=== PATIENT | male | born 1990 | race Hispanic/Latino ===

== ENCOUNTER 2020-05-23 15:47 | Emergency (ER) | payer SELFPAY ==
--- NOTE | ~2020-05-23 | XR_ITS ---
EXAMINATION: XR ankle LT min 3V EXAM DATE: 05/23/2020 16:16 INDICATION: Initial encounter following injury, with pain of the left ankle. TECHNIQUE: Left ankle frontal, lateral and oblique projections obtained and reviewed. There is no pr ior study for comparison. FINDINGS: The left ankle mortise appears intact. There are no acute fractures or dislocations ident ified. There is no subcutaneous gas. The soft tissue is unremarkable. There are no radiopaque for eign bodies. IMPRESSION: 1. XR ankle LT min 3V exam without acute osseous findings. Reviewed, dictated and finalized at location A. WAY ENGINEER
[2020-05-23 16:06] VITALS: BP 148/89; PULSE 124; RESP 18; TEMP 37.3; O2SAT 99
--- NOTE | 2020-05-23 16:30 | ED.LOWEXIN ---
HPI - Extremity Injury (Lower) General Chief Complaint: Extremity Injury, Lower Stated Complaint: Left ankle pain Time Seen by Provider: 05/23/20 16:24 Source: patient and RN notes reviewed Mode of arrival: ambulatory Limitations: no limitations History of Present Illness HPI Narrative: Patient presents today complaining of left ankle pain x2 days after twisting it while walking up some stairs. He has been ambulatory slowly. Currently rates pain 8/10, which increases with weightbearing. Denies numbness or tingling in the leg or foot. He has been taking ibuprofen and applying ice and heat with short-term relief. He has also been wearing a compression wrap. complaint: ankle injury Related Data Home Medications Medication Instructions Recorded Confirmed albuterol sulfate 2 inh INHALATION DIRECTED PRN 05/23/20 05/23/20 Allergies Allergy/AdvReac Type Severity Reaction Status Date / Time No Known Allergies Allergy Unverified 05/23/20 16:05 Review of Systems Review of Systems: Narrative: CONSTITUTIONAL: Denies body aches, fever, chills, or sweats. EYES: Denies visual changes, redness, or discharge. ENT: Denies rhinorrhea, congestion, sore throat, or otalgia. CARDIOVASCULAR: Denies chest pain, palpitations, or edema. RESPIRATORY: Denies cough or dyspnea. GASTROINTESTINAL: Denies abdominal pain, nausea, vomiting, or diarrhea. GENITOURINARY: Denies dysuria or hematuria. SKIN: Denies rash, itching, or wounds. MUSCULOSKELETAL: Denies back pain, or myalgia. + Left ankle injury NEUROLOGIC: Denies headache, numbness, tingling, or weakness. PSYCH: Denies depression or anxiety. PMFSH Comments At time of signature, I have reviewed and agree with nursing past medical, surgical, social and family history unless otherwise noted. Please see nursing chart for further information. There is no relevant family history pertinent to the presenting complaint Exam Narrative: Exam Narrative: GENERAL: Well-appearing, well-nourished, and in no acute distress. HEAD: Normocephalic, atraumatic. EYES: EOMI. No redness or drainage. Conjunctivae normal. ENT: Mucous membranes pink and moist. NECK: Normal AROM. CHEST: No respiratory distress. EXTREMITIES: Left ankle: Mild soft tissue tenderness just anterior to the left lateral malleolus with mild edema. No other tenderness or edema throughout the ankle or foot. No ecchymosis or color change noted through the ankle or foot. Distal sensation intact. Capillary refill normal. Pedal pulse normal. PROM with increased pain. SKIN: Warm, dry, no rash. Capillary refill normal. Normal skin turgor. NEURO: No focal deficits. Alert and oriented x3. Gait steady. PSYCH: Normal affect. No signs of depression or anxiety. Course Vital Signs Vital signs: Vital Signs Temperature 99.1 F 05/23/20 16:06 Pulse Rate 124 H 05/23/20 16:06 Respiratory Rate 18 05/23/20 16:06 Blood Pressure 148/89 H 05/23/20 16:06 Pulse Oximetry 99 05/23/20 16:06 Temperature 99.1 F 05/23/20 16:06 Pulse Rate 124 H 05/23/20 16:06 Respiratory Rate 18 05/23/20 16:06 Blood Pressure 148/89 H 05/23/20 16:06 Pulse Oximetry 99 05/23/20 16:06 Reviewed. Pt has been instructed to follow up with his PCP regarding his elevated blood pressure today. MDM - Extremity Injury (Lower) Differential Diagnosis Differential diagnosis: Likely ankle sprain and strain and ankle fracture Imaging Data Radiologist's impression: ITS Impressions Ankle X-Ray 05/23/20 16:18 IMPRESSION: 1. XR ankle LT min 3V exam without acute osseous findings. Critical Care Time Critical Care Time Critical Care Time: No Discharge Plan Discharge Clinical Impression: Left ankle sprain Qualifiers: Encounter type: initial encounter Involved ligament of ankle: unspecified ligament Qualified Code(s): S93.402A - Sprain of unspecified ligament of left ankle, initial encounter Patient Disposition: Home, S
== END 2020-05-23 16:38 | disposition home or self-care (01) ==
PROVIDERS: Emergency Provider Nurse Practitioner
DX: S93.402A Sprain of unspecified ligament of left ankle, initial encounter (principal); X50.9XXA Other and unspecified overexertion or strenuous movements or postures, initial encounter
CPT/HCPCS: 73610; 99213; G0463

== ENCOUNTER → 2022-02-25 12:09 | Outpatient (CLI) | payer OTHER, SELFPAY ==
--- NOTE | ~2022-02-25 | XR_ITS ---
EXAM: XR ankle RT min 3V DATE: 02/25/2022 12:24 HISTORY: Pain in right ankle and joints of right foot . COMPARISON: None available. FINDINGS: Normal mineralization. No fracture or dislocation. No lytic or blastic lesion. Minimal deg enerative tibiotalar change. Minimal Achilles and plantar enthesopathy. No erosion or periosteal bartholomew ge. Soft tissues within normal limits. Ankle joint effusion. IMPRESSION: No acute osseous finding in the right ankle. Reviewed, dictated and finalized at location K.
== END ==
PROVIDERS: PCP Podiatrist Foot & Ankle Surgery; Visit Provider Podiatrist Foot & Ankle Surgery
DX: M25.571 Pain in right ankle and joints of right foot (principal)
CPT/HCPCS: 73610